=== PATIENT | female | born 1960 | race Caucasian/White ===

== ENCOUNTER 2019-05-11 19:03 | Emergency (ER) | payer BC, OTHER ==
[~2019-05-11] VITALS: Ht 167.6 cm; Wt 81.7 kg
[~2019-05-11 19:03] MED LIST: ALPRAZOLAM 0.50.5 M1 PO; FLONASE 0.05%50 MCG NASAL; PROTONIX40 M1 PO; PROVERA2.5 MG PO; PROZAC20 MG PO; TUSSIONEX PENN473 ML PO; VENTOLIN HFA 1818 GM INH; ZPAK PO
[2019-05-11] MEDS ORDERED: LOSARTAN-HCTZ1 EAC3 PO (19:14)
[2019-05-11] MEDS ORDERED: GABAPENTIN600 M1 PO (19:14)
[2019-05-11] MEDS ORDERED: CRESTOR10 MG PO (19:15)
[2019-05-11 19:26] LABS: URINE BILIRUBIN NEGATIVE (Negative); URINE BLOOD 1+ (Negative); URINE CLARITY CLEAR; URINE COLOR YELLOW; URINE GLUCOSE-RANDOM* NEGATIVE (Negative); URINE KETONES NEGATIVE (Negative); URINE LEUKOCYTES-REFLEX NEGATIVE (Negative); URINE NITRITE-REFLEX NEGATIVE (Negative); URINE PROTEIN (DIPSTICK) NEGATIVE (Negative); URINE SPECIFIC GRAVITY 1.015 (1.005-1.035); URINE UROBILINOGEN 0.2 E.U./dl (0.2-1.0)
[2019-05-11 19:36] LABS: BACTERIA-REFLEX 1-9 Few /HPF (None Seen); CASTS None Seen /LPF (None Seen); CRYSTALS None Seen /LPF (None Seen)
[2019-05-11 19:37] LABS: URINE RBC 3-10 Few /HPF (0-2); URINE WBC-REFLEX 0-5 Rare /HPF (0-5); YEAST-REFLEX Present (None Seen)
[2019-05-11 19:38] LABS: SQUAMOUS 0-3 Few /LPF (0-3)
[2019-05-11] MEDS ORDERED: MOBIC7.5 MG PO (20:36)
[2019-05-11] MEDS ORDERED: FLEXERIL PO (20:36)
[2019-05-11] MEDS ORDERED: PREDNISONE 10 M10 MG PO (20:36)
[2019-05-11] MEDS ORDERED: DIFLUCAN150 M1 PO (21:04)
[2019-05-11 21:29] VITALS: BP 143/68
== END 2019-05-11 21:15 | disposition home or self-care (01) ==
LOC: ER 19:03
PROVIDERS: Physician Assistant
DX: B37.9 Candidiasis, unspecified (principal); M54.5 Low back pain; R31.9 Hematuria, unspecified; I10 Essential (primary) hypertension; F17.200 Nicotine dependence, unspecified, uncomplicated; Z90.49 Acquired absence of other specified parts of digestive tract; Z88.1 Allergy status to other antibiotic agents